=== PATIENT | female | born 1955 | race Native Hawaiian/Other Pacific Islander ===

== ENCOUNTER → 2018-05-10 07:44 | Outpatient (CLI) | payer BC, OTHER | END | disposition home or self-care (01) | LOC: AMB 07:44 | DX: M79.641 Pain in right hand (principal); V43.52XA Car driver injured in collision with other type car in traffic accident, initial encounter; Y93.89 Activity, other specified; Y92.89 Other specified places as the place of occurrence of the external cause ==

== ENCOUNTER 2018-05-10 08:04 | Emergency (ER) | payer BC, OTHER ==
[~2018-05-10] VITALS: Ht 160 cm; Wt 62.6 kg
[2018-05-10 08:04] VITALS: TEMP 97.7
[2018-05-10 10:05] VITALS: BP 127/88
== END 2018-05-10 10:05 | disposition home or self-care (01) ==
LOC: ED 08:04
DX: M19.041 Primary osteoarthritis, right hand (principal); S52.514A Nondisplaced fracture of right radial styloid process, initial encounter for closed fracture; V43.52XA Car driver injured in collision with other type car in traffic accident, initial encounter
CPT/HCPCS: 99283; J1885

== ENCOUNTER 2022-12-17 10:22 | Outpatient (CLI) | payer OTHER | END 2022-12-17 18:58 | disposition home or self-care (01) | LOC: RAD 10:22 | PROVIDERS: ATTEND Family Medicine | DX: S80.11XD Contusion of right lower leg, subsequent encounter (principal); Y92.89 Other specified places as the place of occurrence of the external cause ==